=== PATIENT | female | born 2000 | race Two or more races ===

== ENCOUNTER 2022-11-03 00:16 | Emergency (ER) | payer OTHER, MEDICAID ==
[~2022-11-03] VITALS: Ht 160 cm; Wt 71.2 kg
[2022-11-03] MEDS ORDERED: CLIN300C70 PO (00:39)
[2022-11-03] MEDS ORDERED: DIPH25CA66 PO (00:39)
[2022-11-03] MEDS ORDERED: BACDST PO (00:39)
[2022-11-03] MEDS ORDERED: diphenhdrAMINE HCL 25 MG CAP PO ONE (00:45)
[2022-11-03] MEDS ORDERED: cefTRIAXone SOD 1,000 MG VL IM ONE (00:45)
[2022-11-03] MEDS ORDERED: DexAMETHasone SOD PHOS 10MG/1ML VIAL INJ IM ONE (00:45)
[2022-11-03 01:05] VITALS: BP 119/65; PULSE 85; RESP 16; TEMP 97.7; O2SAT 97
== END 2022-11-03 01:07 | disposition home or self-care (01) ==
LOC: ER 00:18
DX: S40.262A Insect bite (nonvenomous) of left shoulder, initial encounter (principal); S70.362A Insect bite (nonvenomous), left thigh, initial encounter; L03.116 Cellulitis of left lower limb; W57.XXXA Bitten or stung by nonvenomous insect and other nonvenomous arthropods, initial encounter; Y93.89 Activity, other specified; Y92.89 Other specified places as the place of occurrence of the external cause; Y99.8 Other external cause status
CPT/HCPCS: 96372; 99284; J0696; J1100